=== PATIENT | male | born 1950 ===

== ENCOUNTER 2019-05-27 05:55 | Day surgery (SDC) | payer MEDICARE, MEDICAID ==
--- NOTE | 2019-05-26 18:15 | Pre-op HX & Phy Repo 2 SIG ---
DATE OF ADMISSION: 05/27/2019 DATE OF PLANNED SURGERY: 05/27/2019 PREOPERATIVE DIAGNOSIS: Dislocated crystalline lens, right eye. BRIEF NOTE: This is the first [facility] admission for the patient who is a very nice 68-year-old gentleman who complained of sudden loss of vision in the right eye roughly four years ago. On subsequent evaluation, he was found to have a dislocated crystalline lens, which left him essentially aphakic. PAST OCULAR HISTORY: Remarkable for cataract surgery done on the left eye in October of this year with a reasonable result. He also has a history of elevated ocular pressures. He is maintained on Latanoprost. PAST MEDICAL HISTORY: Remarkable for diabetes, hypertension, and elevated cholesterol. MEDICATIONS: He is maintained on aspirin, metformin, lisinopril, allopurinol, and atorvastatin. ALLERGIES: He has no known allergies. PHYSICAL EXAMINATION: Best vision at the time of admission was hand motions in the right eye and 20/30 in the left with pressures of 14. Visual neri appeared full bilaterally. The right pupil was 4 mm and sluggish. The left eye was briskly reactive. Anterior segment examination showed normal conjunctivae and sclerae in either eye. The corneas were clear. The chamber was deep and quiet. There was an iris sphincter tear with adhesions between the iris and the capsular remnants. The lens was dislocated posteriorly. The left anterior segment showed a posterior chamber lens in the bag without issues. Funduscopic examination showed the retinas to be attached bilaterally. The cups were roughly 0.35 in either eye. No evidence of retinal detachment was seen. Fundus exam on the right eye showed a similar normal posterior segment changes. Part of the anterior segment showed the lens to be adherent to the iris and dislocated roughly 50% downward and posterior. ASSESSMENT: 1. 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 2. Open-angle glaucoma, both eyes. 3. Pseudophakia, left eye. PLAN: The plan is to perform a pars plana vitrectomy with fragmentation and removal of the dislocated lens. A decision will be made at the time of surgery whether to place an anterior chamber lens or sutured in posterior chamber lens. The risks and benefits of surgery were gone over with the patient with potential infection, hemorrhage, glaucoma, remote possibility of loss of the eye. The risk of anesthesia was discussed. The patient understands and consents to surgery to be performed on tomorrow morning. Daniel Ortiz M.D. DR: TOM JOB#: [id number] CC:
[2019-05-27] VITALS (8 sets, daily range): BP systolic 121–157; BP diastolic 58–89
[~2019-05-27] VITALS: Ht 175.3 cm; Wt 70.8 kg
[2019-05-27] MEDS ORDERED: Pred Forte 1% Opth Susp 1ml RIGHT EYE SCH (06:00)
[2019-05-27] MEDS ORDERED: Indocyanine Green 25mg Inj INJ ONE (06:00)
[2019-05-27] MEDS: Phenylephrine 2.5% Op 2ml Soln RIGHT EYE SCH ×3 (06:25→07:03)
[2019-05-27] MEDS: Cyclopentolate 1% Opth Sol 2ml RIGHT EYE SCH ×3 (06:25→07:03)
[2019-05-27] MEDS: Vigamox Opth Soln 3ml RIGHT EYE SCH ×3 (06:25→07:04)
[2019-05-27] MEDS: Flurbiprofen 0.03% Opth Sol 2.5ml RIGHT EYE SCH ×3 (06:25→07:03)
[2019-05-27] MEDS ORDERED: EPINEPHrine 1mg/1ml Amp ONE ×2 (06:45→08:54)
[2019-05-27] MEDS ORDERED: Kenalog-40 1ml Vial ONE (06:45)
[2019-05-27] MEDS ORDERED: Pred Forte 1% Opth Susp 1ml ONE (06:45)
[2019-05-27] MEDS ORDERED: Lidocaine 2% MPF 5ml Vial INJ ONE (06:45)
[2019-05-27] MEDS ORDERED: BSS 500ml btl ONE ×2 (06:46→08:54)
[2019-05-27] MEDS ORDERED: BSS 15ml BTL ONE (06:46)
[2019-05-27] MEDS ORDERED: Dexamethasone 4mg/ml vial ONE (06:46)
[2019-05-27] MEDS ORDERED: Kenalog-10 5ml Inj ONE (06:46)
[2019-05-27] MEDS ORDERED: Bupivacaine 0.75% 30ml vial INJ ONE (06:47)
[2019-05-27] MEDS ORDERED: Povidone-Iodine 5% opth solution ONE (06:47)
[2019-05-27] MEDS ORDERED: Sodium Hyaluronate 10 mg/ml 0.85ml ONE (06:47)
[2019-05-27] MEDS ORDERED: Tetracaine 0.5% Opth 4ml Soln ONE (06:47)
[2019-05-27 07:17] LABS: ANION GAP 5 mmol/L (5-15); BLOOD UREA NITROGEN 7 mg/dL (7-18); CALCIUM 9.5 MG/DL (8.5-10.1); CARBON DIOXIDE 30 MMOL/L (21-32); CHLORIDE 99 MMOL/L (98-107); CREATININE 0.6 MG/DL (0.55-1.30); POTASSIUM 4.2 MMOL/L (3.5-5.1); SODIUM 134 MMOL/L (136-145)
--- NOTE | 2019-05-27 07:25 | Anethesia Preoperative Eval ---
Anesthesia Pre-op PMH/ROS General Date of Evaluation: May 27, 2019 Time of Evaluation: 07:30 Anesthesiologist: Saray Patel CRNA ASA Score: ASA 2 Mallampati Score Class I : Soft palate, uvula, fauces, pillars visible Class II: Soft palate, uvula, fauces visible Class III: Soft palate, base of uvula visible Class IV: Only hard plate visible Mallampati Classification: Class II Surgeon: Angel Diagnosis: Dislocated RIGHT eye lens Surgical Procedure: RIGHT eye par plan vitrectomy, removal of lens and IOl implant Anesthesia History: none Social History: current smoker, alcohol use Family History: no anesthesia problems Allergies: Coded Allergies: No Known Allergies (Unverified , 05/27/19) Medications: see eMAR Patient NPO?: Yes NPO Date: May 27, 2019 NPO Time: 00:00 Past Medical History Cardiovascular: Reports: HTN, other - Hyperlipidemia; Denies: CAD, DE, valve dz, arrhythmia Pulmonary: Denies: asthma, COPD, FIFI, other Gastrointestinal/Genitourinary: Denies: GERD, CRI, ESRD, other Neurologic/Psychiatric: Reports: depression/anxiety - schizophrenia; Denies: dementia, CVA, TIA, other Endocrine: Reports: DM, other; Denies: hypothyroidism, steroids HEENT: Reports: cataract (L), cataract (R); Denies: glaucoma, [place] (L), [place] (R), other Hematology/Immune: Denies: anemia, DVT, bleeding disorder, other Musculoskeletal/Integumentary: Reports: other - gout; Denies: OA, RA, DJD, DDD, edema PMH Narrative: as noted above PSxH Narrative: eye surgery Anesthesia Pre-op Phys. Exam Physician Exam Last Vital Signs Date Time Temp Pulse Resp B/P (MAP) Pulse Ox O2 Delivery O2 Flow Rate FiO2 05/27/19 07:11 Room Air 05/27/19 06:33 97.0 55 18 136/74 98 Constitutional: NAD Neurologic: other - poor historian, alert & oriented x 3 Cardiovascular: RRR Respiratory: CTA Gastrointestinal: S/NT/ND Airway Exam Mallampati Score: Class II MO: full Neck: FROM TMD: > 3 FB ROM: full Teeth: missing Dentures: no upper, no lower Anesthesia Pre-op A/P Labs Hematology Test 05/27/19 07:00 White Blood Count Pending Red Blood Count Pending Hemoglobin Pending Hematocrit Pending Mean Corpuscular Volume Pending Mean Corpuscular Hemoglobin Pending Mean Corpuscular Hemoglobin Concent Pending Red Cell Distribution Width Pending Platelet Count Pending Mean Platelet Volume Pending Neutrophils (%) (Auto) Pending Lymphocytes (%) (Auto) Pending Monocytes (%) (Auto) Pending Eosinophils (%) (Auto) Pending Basophils (%) (Auto) Pending Chemistry Test 05/27/19 07:00 Sodium Level 134 MMOL/L (136-145) L Potassium Level 4.2 MMOL/L (3.5-5.1) Chloride Level 99 MMOL/L (98-107) Carbon Dioxide Level 30 MMOL/L (21-32) Anion Gap 5 mmol/L (5-15) Blood Urea Nitrogen 7 mg/dL (7-18) Creatinine 0.6 MG/DL (0.55-1.30) Estimat Glomerular Filtration Rate > 60 mL/min (>60) Glucose Level 72 MG/DL (74-106) L Calcium Level 9.5 MG/DL (8.5-10.1) Studies Pre-op Studies: EKG - SB Risk Assessment & Plan Status Change Before Surgery: No Pre-Antibiotics Given Within 1 Hr of Incision: Saray Calixto CRNA May 27, 2019 07:25
[2019-05-27 07:27] LABS: BASOPHILS % (AUTO) 1.4 % (0.0-2.0); EOSINOPHILS % (AUTO) 1.2 % (0.0-3.0); HEMATOCRIT 39.4 % (42.0-52.0); HEMOGLOBIN 13.9 G/DL (14.2-18.0); LYMPHOCYTES % (AUTO) 26.3 % (20.0-45.0); MEAN CORPUSCULAR VOLUME 96 FL (80-99); MONOCYTES % (AUTO) 7.6 % (1.0-10.0); NEUTROPHILS % (AUTO) 63.5 % (45.0-75.0); PLATELET COUNT 244 K/UL (150-450); RED BLOOD COUNT 4.11 M/UL (4.70-6.10); RED CELL DISTRIBUTION WIDTH 11.7 % (11.6-14.8)
[2019-05-27] MEDS ORDERED: ALLOPURINOL100 M1 ORAL (07:28)
[2019-05-27] MEDS ORDERED: Midazolam 2mg/2ml Inj ONE (07:45)
[2019-05-27] MEDS ORDERED: fentaNYL 100 mcg/2 mL ONE (07:45)
--- NOTE | 2019-05-27 07:52 | Pre-Procedure Note/Attestation ---
Pre-Procedure Note/Attestation Complete Prior to Procedure Planned Procedure: right Procedure Narrative: PPV, fragmentation of dislocated crystalline lens, secondary lens implantation RIGHT eye Indications for Procedure Pre-Operative Diagnosis: Dislocated crystalline lens RIGHT eye Attestation I attest that I discussed the nature of the procedure; its benefits; risks and complications; and alternatives (and the risks and benefits of such alternatives ), prior to the procedure, with the patient (or the patient's legal customer operations representative). I attest that, if there was a reasonable possibility of needing a blood transfusion, the patient (or the patient's legal customer operations representative) was given the [facility] standardized written summary, pursuant to the Joce Pastura Blood Safety Act ([place] Health and Safety Code # 1645, as amended). I attest that I re-evaluated the patient just prior to the surgery and that there has been no change in the patient's H&P, except as documented below: Daniel Ortiz MD May 27, 2019 07:52
[2019-05-27] MEDS ORDERED: NS Irrig 1000ml ONE (08:00)
[2019-05-27] MEDS ORDERED: Sterile Water Irrig 1000ml IRRIG ONE (08:00)
[2019-05-27] MEDS ORDERED: Lidocaine 1% MPF 10mg/ml 5ml ONE (08:00)
[2019-05-27] MEDS ORDERED: ePHEDrine 50mg/ml Inj ONE (08:00)
[2019-05-27] MEDS ORDERED: Propofol 200mg/20ml IV ONE (08:00)
[2019-05-27] MEDS ORDERED: LR 1000ml ONE (08:00)
[2019-05-27] MEDS ORDERED: Acetylcholine Injection (OR) ONE (08:15)
[2019-05-27] MEDS ORDERED: ASPIR 8181 MG ORAL (08:18)
[2019-05-27] MEDS ORDERED: ABILIFY10 MG ORAL (08:18)
[2019-05-27] MEDS ORDERED: DEPAKOTE500 MG PO (08:18)
[2019-05-27] MEDS ORDERED: LISINOPRIL5 MG ORAL (08:18)
[2019-05-27] MEDS ORDERED: ATORVASTATIN CA20 MG ORAL (08:18)
[2019-05-27] MEDS ORDERED: LATANOPROST 0.7.5 ML OP (08:18)
[2019-05-27] MEDS ORDERED: RHOPRESSA2.5 ML OP (08:18)
[2019-05-27] MEDS ORDERED: POLYVINYL ALCOH15 ML OP (08:18)
[2019-05-27] MEDS ORDERED: METFORMIN HCL500 M1 ORAL (08:18)
--- NOTE | 2019-05-27 09:35 | Immediate Post-Op Evaluation ---
Immediate Post-Op Evalulation Immediate Post-Op Evalulation Procedure: RIGHT eye pars plana vitrectomy, removal of lens, IOL implant Date of Evaluation: May 27, 2019 Time of Evaluation: 09:51 IV Fluids: LR 700 ml, D5W 100 ml Blood Pressure Systolic: 121 Blood Pressure Diastolic: 58 Pulse Rate: 70 Respiratory Rate: 20 O2 Sat by Pulse Oximetry: 97 Temperature (Fahrenheit): 97 Pain Score (1-10): 0 Nausea: No Vomiting: No Patient Status: awake, reacts, patent Hydration Status: adequate Given Within 1 Hr of Incision: Saray Calixto CRNA May 27, 2019 09:35
[2019-05-27] MEDS ORDERED: Metoclopramide 10mg/2ml Inj IVP PRN (09:45)
--- NOTE | 2019-05-27 09:53 | Brief Operative Note ---
Immediate Post Operative Note Operative Note Chief Complaint: Poor vision RIGHT eye Pre-op Diagnosis: Dislocated crystalline lens RIGHT eye Procedure: PPV, fragmentation of dislocated lens, placement of secondary IOL, peripheral iridotomy OS Post-op Diagnosis: same as pre-op plus - Significant disc cupping and pallor noted during surgery Surgeon: patti Anesthesiologist: LAKESHIA Patel Anesthesia: general Specimen: none Complications: none Condition: stable Fluids: per aneshesia Estimated Blood Loss: none Drains: none Packing: none Implant(s) used?: Yes Daniel Ortiz MD May 27, 2019 09:53
--- NOTE | 2019-05-27 10:00 | 48 Hour Post Anesthesia Eval ---
Post Anesthesia Evaluation Procedure: RIGHT eye pars plana vitrectomy, removal of lens, IOL implant Date of Evaluation: May 27, 2019 Time of Evaluation: 09:59 Blood Pressure Systolic: 133 0: 85 Pulse Rate: 66 Respiratory Rate: 18 Temperature (Fahrenheit): 97.0 O2 Sat by Pulse Oximetry: 100 Airway: patent Nausea: No Vomiting: No Pain Intensity: 0 Hydration Status: adequate Cardiopulmonary Status: stable Mental Status/LOC: patient returned to baseline Follow-up Care/Observations: per optho Post-Anesthesia Complications: none Follow-up care needed: N/A Saray Patel CRNA May 27, 2019 10:00
--- NOTE | 2019-05-27 10:30 | Pre-op HX & Phy Repo 2 SIG ---
DATE OF ADMISSION: 05/27/2019 PRESURGICAL INTERNAL MEDICINE HISTORY AND PHYSICAL DATE OF EVALUATION: 05/27/2019 REASON FOR EVALUATION: I was asked by Dr. Daniel Ortiz to see this 68-year-old male, who is going for elective surgery on the right eye. The patient has dislocated lens, right eye. Please see full Ophthalmology History and Physical by Dr. Daniel Ortiz. The patient was examined in the outpatient procedure at [facility]. PAST MEDICAL HISTORY AND REVIEW OF SYSTEMS: Remarkable for history of hypertension, type 2 diabetes mellitus, chronic schizophrenia, hyperlipidemia, and gout. Denies history of thyroid problem or GI problem. No renal insufficiency. No anemia. PAST SURGICAL HISTORY: Left eye cataract surgery. FAMILY HISTORY: Mother alive at age 92. Father in a car accident. ALLERGIES: Not known. MEDICATIONS: Present medications include allopurinol, Abilify, baby aspirin 81 mg, atorvastatin, 500 mg, Depakote, lisinopril 10 mg, and drops. HABITS: The patient smoked for the last 30 years pack a day. Alcohol, unknown. The patient smoked marijuana in the past. PHYSICAL EXAMINATION: GENERAL: The patient is alert, well-developed and well-nourished male in his 60s. VITAL SIGNS: Blood pressure 131/74, temperature 97, pulse 55 and regular. O2 saturation 98% on room air. SKIN: Warm. No rashes. No ulcer or open wound. LYMPHATICS: Lymph nodes not enlarged. HEENT: Head is normocephalic and atraumatic. Ears, clear. Eyes, full description per Dr. Daniel Ortiz. Mouth, clear and moist. Missing teeth. NECK: Supple. No jugular venous distention. Carotids artery +2. Trachea midline. CHEST: No deformity or asymmetry. LUNGS: Clear to auscultation to percussion. No rales or rhonchi. HEART: Sinus rhythm. No ectopy. Bradycardia. ABDOMEN: Soft. Benign. Liver and spleen not enlarged. No rebound. EXTREMITIES: No peripheral edema. No varicose veins. No calf tenderness. NEUROLOGIC: No asymmetry. No tremor. No nystagmus. DIAGNOSTIC DATA: ECG, sinus bradycardia 49 per minute with sinus arrhythmia. Fasting blood sugar is 79 mg per deciliter. IMPRESSION: 1. Dislocated lens, right eye. 2. Hypertension, controlled. 3. Type 2 diabetes mellitus. 4. Schizophrenia, chronic. 5. Hyperlipidemia. 6. Sinus bradycardia, on ECG. 7. Gout. PLAN: Pars plana vitrectomy and removal of dislocated lens, right eye. The patient did not eat or drink from 8 p.m. yesterday. CONCLUSION: The patient has sinus bradycardia, asymptomatic. The patient's blood sugar is controlled on proper medication and blood pressure controlled as well. The patient did not eat or drink from last night. The patient's condition is optimized for surgery. Thank you very much, Dr. Ortiz, for privilege to participate in presurgical care of this interesting patient. Silvana Chau M.D. DR: THU JOB#: [id number] CC:
--- NOTE | 2019-05-28 01:45 | Operative Note - Dictated ---
DATE OF OPERATION: 05/26/2019 PREOPERATIVE DIAGNOSIS: Dislocated crystalline lens, right eye. POSTOPERATIVE DIAGNOSIS: Dislocated crystalline lens, right eye with significant glaucomatous cupping noted, right disc. PROCEDURES PERFORMED: 1. Pars plana vitrectomy. 2. Fragmentation of dislocated crystalline lens. 3. Placement of secondary intra-ocular lens. 4. Formation of peripheral iridotomy, right eye. SURGEON: Daniel Ortiz M.D. ASSISTANT DIRECTOR OF RESIDENCE LIFE: None. ANESTHESIA: LMA general. ANESTHESIOLOGIST: Saray Patel CRNA. JUSTIFICATION FOR SURGERY: This 68-year-old gentleman noted a decreased vision in the right eye and was found to have a dislocated significantly cataract as lens on that side. BRIEF NOTE: The patient was brought to the operative room and placed on OR table in supine position. After time-out was agreed upon by the staff, general LMA anesthesia was induced. A retrobulbar block was given consisting of 3 mL solution to limit postoperative pain and the need for intraoperative anesthetic. The patient was then prepped and draped in normal manner. A lid speculum was inserted into the right eye. A 150 degree superior peritomy was made from the 10 to 1 o'clock positions. Bleeding was controlled with cautery. Infusion secured inferotemporally with two additional 23-gauge cannula was placed superiorly. A limited vitrectomy was performed posterior to the lens to remove vitreous debris. Supratemporal sclerotomy was enlarged and the 20-gauge fragmentation cannula was inserted. Initial fragmentation was achieved but the severely dislocated lens was noted to follow posteriorly. At this juncture, a complete vitrectomy was performed using the wide-angle viewing system. The eye was re-entered with the fragmatome and the lens engaged from over the optic nerve and fragmented in the mid vitreous using several suction and fragmentation intervals. This went without difficulty. Vitrectomy was completed and Kenalog was used to aid in visualization of the peripheral vitreous which was removed. Scleral depression was done and no peripheral breaks, tears, or detachments were seen. The supratemporal wound, which had been enlarged, was then closed with 8-0 Vicryl interrupted sutures. Preparation was then made for placement of an anterior chamber lens. This was selected after measuring the [id number] distance of 11.5 mm. A 12.5 mm diameter anterior chamber lens 16 diopters power was selected. A half thickness groove, 6 mm in length, was cut slightly superotemporally. The eye was entered with a keratome and the wound extended end-to-end. Healon was placed within the anterior chamber to stabilize the eye. A lens glide was then inserted followed by placement of the intraocular, lens which was secured in the angle and rotated towards the position of 10 and 4. Miochol was used to constrict the pupil after which 10-0 nylon sutures were placed in the wound in interrupted fashion, all knots were buried. Vitreous cutter was then used at the lowest repeat rate and a small iridotomy was cut at the 2 o'clock position in the far periphery. The lens was noted to be in excellent position with a nice round pupil. Conjunctiva and tenons capsule were then pulled up and secured with 6-0 plain catgut sutures with the knots buried. The sclerotomies were closed with 8-0 Vicryl suture. Subconjunctival Decadron and gentamicin were then injected inferiorly and topical moxifloxacin drops, prednisolone drops were instilled. The eye was patched and shielded and the patient was taken to Recovery in excellent condition. There were no complications. Daniel Ortiz M.D. DR: TOM JOB#: [id number] CC:
== END 2019-05-27 11:35 | disposition home or self-care (01) ==
LOC: SUR 05:55
DX: T85.22XA Displacement of intraocular lens, initial encounter (principal); I10 Essential (primary) hypertension; E11.9 Type 2 diabetes mellitus without complications; F20.9 Schizophrenia, unspecified; E78.5 Hyperlipidemia, unspecified; Z79.82 Long term (current) use of aspirin; Z79.899 Other long term (current) drug therapy; Z87.891 Personal history of nicotine dependence; R00.1 Bradycardia, unspecified; M10.9 Gout, unspecified; H40.10X0 Unspecified open-angle glaucoma, stage unspecified; Z96.1 Presence of intraocular lens
CPT/HCPCS: 36415; 66852; 66986; 80048; 82962; 85025; 93005; J0171; J1100; J2250; J2405; J2704; J3010; J3301; J3470; J3490; V2632; 94003; 94150